=== PATIENT | male | born 2000 | race Caucasian/White ===

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

== ENCOUNTER 2022-04-30 02:43 | Emergency (ER) | payer SELFPAY ==
[2022-04-30 02:44] VITALS: BP 172/98; PULSE 112; RESP 18; TEMP 37.1; O2SAT 100; BMI 29.7
[2022-04-30 03:11] LABS: Adenovirus F 40/41, stool Not Detected (NotDetected); Astrovirus Not Detected (NotDetected); Campylobacter Not Detected (NotDetected); Cryptosporidium Not Detected (NotDetected); Cyclospora Cayetanesis Not Detected (NotDetected); Entamoeba histolytica Not Detected (NotDetected); Enteroaggregative E coli Not Detected (NotDetected); Enteropathogenic E coli Not Detected (NotDetected); Enterotoxigenic E coli Not Detected (NotDetected); Giardia lamblia Not Detected (NotDetected); Plesimonas Shigalloides, PCR Not Detected (NotDetected); Rotavirus A Not Detected (NotDetected); Salmonella, PCR Not Detected (NotDetected); Sapovirus Not Detected (NotDetected); Shiga-like toxin E coli Not Detected (NotDetected); Shigella Enterovasive E coli Not Detected (NotDetected); Vibrio Cholerae Not Detected (NotDetected); Vibrio, PCR Not Detected (NotDetected); Yersinia Entercolitica, PCR Not Detected (NotDetected)
[2022-04-30 03:30] LABS: Basophils # 0.1 K/mm3 (0-0.2); Basophils % 0.6 % (0.1-2.0); Eosinophils # 0.2 K/mm3 (0.0-0.4); Hematocrit 49.5 % (42.0-52.0); Hemoglobin 17.1 g/dL (14.1-18.0); Lymphocytes % 5.7 % (10-50); Mean Corpuscular HGB Conc 34.6 g/dL (31.8-35.4); Mean Corpuscular Hemoglobin 28.5 pg (27.0-31.2); Mean Corpuscular Volume 82.6 fl (80-94); Mean Platelet Volume 8.1 fl (7.4-10.4); Monocytes # 1.3 K/mm3 (0.1-1.0); Monocytes % 7.9 % (1.7-9.3); Neutrophils # 14.4 K/mm3 (1.8-7.8); Neutrophils % 84.9 % (37.0-80.0); Platelet Count 333 K/mm3 (142-424); Red Blood Count 5.99 M/mm3 (4.60-6.20); Red Cell Distribution Width 13.1 % (11.5-17.5)
[2022-04-30 03:31] LABS: MANUAL DIFFERENTIAL MANUAL DIFFERENTIAL (MANUAL DIFF)
[2022-04-30 03:33] LABS: Alanine Aminotransferase 31 U/L (12-78); Albumin Level 5.6 g/dl (3.5-5.0); Albumin/Globulin Ratio 1.4 (1.1-1.8); Alkaline Phosphatase 155 U/L (38-126); Anion Gap 19.7 mEq/L (5-15); Aspartate Amino Transferase 36 U/L (17-59); Blood Urea Nitrogen 16 mg/dl (9-20); Calcium 10.8 mg/dl (8.4-10.2); Carbon Dioxide 24 mmol/L (22.0-30.0); Chloride 103 mmol/L (98-107); Creatinine Clearance Estimated 172 mL/min (50-200); Estimated Glomerular Filt Rate 96 ml/min (>60); GFR (African American) 116 ML/MIN (>60); Glucose 150 mg/dl (74-100); Potassium 3.7 mmoL/L (3.5-5.1); Sodium 143 mmol/L (136-145); Total Protein,Serum 9.6 g/dl (6.3-8.2)
[2022-04-30 03:59] LABS: Lymphocytes % 11 % (10-50); Monocytes % 2 % (2-9); Neutrophils % 79 % (42-76); Platelet Estimate Normal; RBC Morphology Normal; Total Cells Counted 100
--- NOTE | 2022-04-30 04:48 | HMH.EDNVD ---
Discharge Plan Disposition Patient Disposition: Home, Self-Care Prescriptions Prescriptions: New ondansetron HCl 4 mg Tablet 4 mg PO Q8H PRN (Reason: Nausea) Qty: 20 0RF metronidazole 500 mg Tablet 500 mg PO TID Qty: 30 0RF No Action ondansetron 4 MG tablet,disintegrating 4 mg PO TIDP PRN (Reason: Nausea And Vomiting) Qty: 10 0RF amoxicillin 500 MG capsule 500 mg PO BID 10 Days Qty: 20 0RF ondansetron 4 MG tablet,disintegrating 4 mg PO TIDP PRN (Reason: Nausea) Qty: 9 0RF cefdinir 300 MG capsule 300 mg PO BID 10 Days Qty: 20 0RF ondansetron 4 MG tablet,disintegrating 4 mg PO TIDP PRN (Reason: Nausea) Qty: 15 0RF Referrals Follow up/Referrals: Provider,Referral, MD [Primary Care Provider] - See instructions Clinical Impressions Clinical Impression: Enteritis due to Norovirus, C. difficile enteritis Instructions Patient Instructions: DI for Diarrhea and Traveler's Diarrhea -- Adult, DI for Nausea -- Adult Discharge ED Provider: Isrrael De Paz Nausea/Vomiting/Diarrhea HPI General Chief complaint: Nausea/Vomiting/Diarrhea Stated complaint: vomiting, diarrhea Time Seen by Provider: 04/30/22 04:48 Mode of Arrival: Ambulatory Source of Information: Patient and Medical Record Limitations: No Limitations Description of Symptoms (Recalled from ER Triage Doc. by RN): pt c/o n/v/d that started yesterday. has been exposed to norovirus History of Present Illness HPI Narrative: pt with exposure to norovirus presents with vomiting and diarrhea - MD complaint: nausea, vomiting, diarrhea and abdominal pain Onset (ago): day(s) Associated Abdominal Pain: Yes Location of pain: diffuse Severity: moderate Quality: cramping Context: sick contacts Associated symptoms: denies other symptoms Related Data Previous Rx's Medication Instructions Recorded amoxicillin 500 mg capsule 500 mg PO BID 10 days #20 caps 09/22/20 ondansetron 4 mg disintegrating 4 mg PO TIDP PRN Nausea #9 tabs 09/22/20 tablet cefdinir 300 mg capsule 300 mg PO BID 10 days #20 caps 09/23/20 ondansetron 4 mg disintegrating 4 mg PO TIDP PRN Nausea #15 tabs 09/23/20 tablet ondansetron 4 mg disintegrating 4 mg PO TIDP PRN Nausea And 07/26/21 tablet Vomiting #10 tabs metronidazole 500 mg tablet 500 mg PO TID #30 tabs 04/30/22 ondansetron HCl 4 mg tablet 4 mg PO Q8H PRN Nausea #20 tabs 04/30/22 Allergies Allergy/AdvReac Type Severity Reaction Status Date / Time No Known Drug Allergies Allergy Unknown Verified 09/23/20 14:00 [facility] Disclaimer: The information contained in this section may have been updated after the patient was seen, as this information can be updated by other users. Social History Smoking Status: Former smoker alcohol intake: never current occupational status: employed Travel in the last 8 weeks: None ROS Obtained: Yes All systems reviewed & no additional complaints except as documented Physical Exam General General appearance: alert Head Head exam: normocephalic Eye Eye exam: Present PERRL and EOMI ENT ENT exam: Present mucous membranes moist Neck Neck exam: Present trachea midline Respiratory Respiratory exam: Absent respiratory distress Cardiovascular Cardiovascular exam: Present regular rate Abdominal Exam Abdominal exam: Present soft and tenderness; Absent guarding or rebound Extremities Exam Extremities exam: Present full ROM Neurological Exam Neurological exam: Present alert, oriented X3 and CN II-XII intact Psychiatric Psychiatric exam: Present normal affect Skin Skin exam: Absent rash Medical Decision Making Medical Records Medical records reviewed: Yes I reviewed the patient's medical records. Adams Inquiry Pt receiving controlled substance: No Vital Signs: 04/30/22 02:44 04/30/22 05:48 Temperature 98.7 F 98.7 F Temperature Source Oral Oral Pulse Rate 90 Pulse Rate [Right] 112 H Respiratory Rate 18 16 Blood Pressure 135/74 Blood
[2022-04-30 05:24] LABS: Clostridium Difficile A/B, PCR Detected (NotDetected); Norovirus Detected (NotDetected)
[2022-04-30 05:48] VITALS: BP 135/74; PULSE 90; RESP 16; TEMP 37.1; O2SAT 100
== END 2022-04-30 06:11 | disposition home or self-care (01) ==
PROVIDERS: Emergency Provider Emergency Medicine
DX: A08.11 Acute gastroenteropathy due to Norwalk agent; Z79.899 Other long term (current) drug therapy; Z87.891 Personal history of nicotine dependence
CPT/HCPCS: 80053; 85007; 85025; 87507; 96361; 96374; 96375; 99284; J2405

== ENCOUNTER → 2023-03-20 06:34 | Outpatient (CLI) | payer BC, SELFPAY ==
[2023-03-20 20:04] LABS: MANUAL DIFFERENTIAL MANUAL DIFFERENTIAL (MANUAL DIFF)
[2023-03-20 20:10] LABS: Basophils % 0.3 % (0.1-2.0); Eosinophils # 0.1 K/mm3 (0.0-0.4); Eosinophils % 1.5 % (0.1-12.0); Hematocrit 46.3 % (42.0-52.0); Hemoglobin 16.4 g/dL (14.1-18.0); Lymphocytes # 2.5 K/mm3 (0.7-4.5); Lymphocytes % 36.1 % (10-50); Mean Corpuscular HGB Conc 35.3 g/dL (31.8-35.4); Mean Corpuscular Hemoglobin 29.8 pg (27.0-31.2); Mean Corpuscular Volume 84.4 fl (80-94); Monocytes # 0.5 K/mm3 (0.1-1.0); Monocytes % 6.6 % (1.7-9.3); Neutrophils # 3.9 K/mm3 (1.8-7.8); Neutrophils % 55.5 % (37.0-80.0); Platelet Count 250 K/mm3 (142-424); Red Blood Count 5.49 M/mm3 (4.60-6.20); Red Cell Distribution Width 13.2 % (11.5-17.5)
[2023-03-20 20:37] LABS: Erythrocyte Sedimentation Rate 5 mm/hr (0-15)
[2023-03-20 20:42] LABS: Chloride 101 mmol/L (98-107); Potassium 3.9 mmoL/L (3.5-5.1); Sodium 141 mmol/L (136-145)
[2023-03-20 20:45] LABS: Alanine Aminotransferase 22 U/L (12-78); Albumin Level 5.4 g/dl (3.5-5.0); Albumin/Globulin Ratio 1.7 (1.1-1.8); Alkaline Phosphatase 114 U/L (38-126); Anion Gap 13.9 mEq/L (5-15); Aspartate Amino Transferase 29 U/L (17-59); Bilirubin,Total 0.5 mg/dl (0.2-1.3); Blood Urea Nitrogen 17 mg/dl (9-20); Calcium 9.7 mg/dl (8.4-10.2); Carbon Dioxide 30 mmol/L (22.0-30.0); Estimated Glomerular Filt Rate 95 ml/min (>60); GFR (African American) 115 ML/MIN (>60); Globulin 3.2 g/dL (1.3-3.2); Glucose 74 mg/dl (74-100); Iron 88 ug/dL (49-181); Total Protein,Serum 8.6 g/dl (6.3-8.2)
[2023-03-20 21:08] LABS: 25-OH Vitamin D, Total 22.1 ng/mL (30-100)
[2023-03-20 21:09] LABS: T4 (Thyroxine) 8.6 ug/dl (5.53-11.0); Triiodothryronine (T3) Uptake 35 % (23.5-40.5)
[2023-03-20 21:22] LABS: Thyroid Stimulating Hormone 1.64 uIU/mL (0.465-4.68)
[2023-03-20 21:34] LABS: Prostate Specific Ag Screen 0.5 ng/ml (0.0-4.0)
[2023-03-20 21:35] LABS: C-Reactive Protein < 0.3 mg/L (0-4); Total Iron Binding Capacity 438 ug/dL (261-462)
[2023-03-20 21:42] LABS: Vitamin B12 352 pg/mL (239-931)
[2023-03-20 23:46] LABS: Eosinophils % 2 % (0-3); Lymphocytes % 27 % (10-50); Monocytes % 4 % (2-9); Neutrophils % 67 % (42-76); Platelet Estimate Normal; RBC Morphology Normal; Total Cells Counted 100
[2023-03-22 08:28] LABS: Testosterone,Total 210 ng/dL (264-916)
[2023-03-22 13:29] LABS: Anti-Centromere B Antibodies <0.2 AI (0.0-0.9); Anti-DNA (DS) Ab Qn 1 IU/mL (0-9); Anti-Jo-1 <0.2 AI (0.0-0.9); Anti-Smith Antibody <0.2 AI (0.0-0.9); Antichromatin Antibodies <0.2 AI (0.0-0.9); Antiscleroderma-70 Antibodies <0.2 AI (0.0-0.9); RNP Antibodies 0.2 AI (0.0-0.9); Sjogren's Anti-SS-A <0.2 AI (0.0-0.9); Sjogren's Anti-SS-B <0.2 AI (0.0-0.9)
[2023-03-25 06:06] LABS: Testosterone,Free 6.8 pg/mL (9.3-26.5)
[2023-03-27 08:18] LABS: Thyroid Peroxidase Antibodies 13 IU/mL (0-34)
[2023-03-28 06:14] LABS: Thyroid Stimulating Immunoglob 0.26 IU/L (0.00-0.55)
== END ==
LOC: LAB.DROPOF 03-21 06:35
PROVIDERS: PCP Physician Assistant; Visit Provider Physician Assistant
DX: R53.83 Other fatigue (principal); R79.89 Other specified abnormal findings of blood chemistry; E55.9 Vitamin D deficiency, unspecified; E29.1 Testicular hypofunction; Z12.5 Encounter for screening for malignant neoplasm of prostate
CPT/HCPCS: 80053; 82306; 82607; 83540; 83550; 84402; 84403; 84436; 84443; 84445; 84479; 85007; 85014; 85018; 85048; 85049; 85651; 86140; 86225; 86235; 86376; G0103

== ENCOUNTER → 2023-04-02 15:04 | Outpatient (CLI) | payer BC, SELFPAY ==
--- NOTE | 2023-04-02 | US_ITS ---
FINAL REPORT CLINICAL HISTORY: BLE numbness, ED FINDINGS: LOWER EXTREMITY SEGMENTAL PRESSURE MEASUREMENTS FINDINGS: Pressure indices are as follows: RIGHT LOWER EXTREMITY: Upper thigh: 0.92 Calf: 0.97 Ankle, posterior tibial artery: 1.02 Ankle, dorsalis pedis: 0.94 Toe: 0.86 Comments: No evidence of significant obstructive peripheral vascular disease LEFT LOWER EXTREMITY: Upper thigh: 0.95 Calf: 1.07 Ankle, posterior tibial artery: 1.07 Ankle, dorsalis pedis: Toe: 0.82 Comments: Normal values IMPRESSION: No evidence of significant obstructive peripheral vascular disease Authenticated and ERN
== END ==
LOC: RT 15:05
PROVIDERS: PCP Physician Assistant; Visit Provider Physician Assistant
DX: R20.0 Anesthesia of skin (principal)
CPT/HCPCS: 93923

== ENCOUNTER → 2023-04-05 15:41 | Outpatient (CLI) | payer BC, SELFPAY ==
--- NOTE | 2023-04-05 15:42 | US_ITS ---
FINAL REPORT CLINICAL HISTORY: adnormal thyroid panel COMPARISON: None FINDINGS: THYROID ULTRASOUND: The right lobe of the thyroid measures 5.7 x 1.7 x 1.9 cm in size. There is a small nodule in the right side of the isthmus of the thyroid gland, which measures 4 x 3 x 2 mm in size, hypoechoic, solid. No other nodules are noted in the right lobe. The left lobe of the thyroid gland measures 5 x 1.2 x 1.8 cm in size, with a small nodule in the left lobe of the thyroid gland, which measures 5 x 4 x 2 mm in size. This nodule is solid, hypoechoic, a TI-RADS 4 category nodule. No other nodules are noted in the left lobe. The isthmus of the thyroid gland measures 3 mm in thickness. IMPRESSION: Nodule in the right side of the isthmus of the thyroid, as described. According to TI-RADS criteria, this nodule does not require follow-up. Nodule in the left lobe of the thyroid gland, 5 x 4 x 2 mm in size, a TI-RADS category 4 nodule. This nodule does not require follow-up at this time according to TI-RADS criteria. Reviewed, Interpreted and Dictated by John Simmons III, MD Transcribed by Stephanie Vega Authenticated and [facility]
== END ==
PROVIDERS: PCP Physician Assistant; Visit Provider Physician Assistant
DX: R89.9 Unspecified abnormal finding in specimens from other organs, systems and tissues (principal)
CPT/HCPCS: 76536

== ENCOUNTER → 2023-04-06 07:48 | Outpatient (CLI) | payer BC, SELFPAY ==
--- NOTE | 2023-04-06 07:48 | MR_ITS ---
PROCEDURE INFORMATION: Exam: MR Lumbar Spine Without Contrast Exam date and time: 04/06/2023 9:39 AM Age: 22 years old Clinical indication: Patient HX: Low back pain, bilateral leg numbness; Additional info: ED, numbness ble TECHNIQUE: Imaging protocol: Magnetic resonance imaging of the lumbar spine without contrast. COMPARISON: CT ABDOMEN PELVIS W CON 09/23/2020 2:52 PM FINDINGS: Limitations: The axial imaging is degraded by motion. Bones/joints: The alignment is anatomic. The vertebral body heights are maintained. The marrow signal is normal. No fracture. Spinal cord: Visualized cord, conus medullaris and cauda equina are unremarkable without compression. L1-L2: No significant disc bulge or herniation. No severe spinal canal stenosis. No significant neural foraminal narrowing. L2-L3: No significant disc bulge or herniation. No severe spinal canal stenosis. No significant neural foraminal narrowing. L3-L4: No significant disc bulge or herniation. No severe spinal canal stenosis. No significant neural foraminal narrowing. L4-L5: L4-L5 subtle saddle shaped disc bulging is seen without stenosis. There is minimal facet arthrosis with left-sided posteriorly projecting 5 mm synovial cyst. L5-S1: L5-S1 there is minimal diffuse disc bulging present without stenosis of the spinal canal. The left neural foramina is mildly narrowed. Soft tissues: Unremarkable. IMPRESSION: Minimal degenerative disc disease L4-S1 without spinal canal stenosis, as described.
--- NOTE | 2023-04-06 08:02 | XR_ITS ---
PROCEDURE INFORMATION: Exam: XR Orbits Exam date and time: 04/06/2023 8:04 AM Age: 22 years old Clinical indication: Screening exam; Mri clearance, HX welding; Additional info: Mri clearance, HX of welding TECHNIQUE: Imaging protocol: XR of the orbits. Views: Minimum of 4 views COMPARISON: No relevant prior studies available. FINDINGS: Sinuses: Well aerated. No opacification. Bones/joints: No fracture. Soft tissues: Unremarkable. IMPRESSION: Unremarkable.
== END ==
PROVIDERS: PCP Physician Assistant; Visit Provider Physician Assistant
DX: R20.0 Anesthesia of skin (principal); H05.53 Retained (old) foreign body following penetrating wound of bilateral orbits
CPT/HCPCS: 70200; 72148; 76376

== ENCOUNTER 2023-05-22 18:15 | Emergency (ER) | payer BC, SELFPAY ==
[2023-05-22 18:55] VITALS: BP 138/88; PULSE 120; RESP 18; TEMP 37.4; O2SAT 98; BMI 32.3
--- NOTE | 2023-05-22 19:09 | ED_ITS ---
Discharge Plan Disposition Patient Disposition: Home, Self-Care Condition: Good Prescriptions Prescriptions: New oseltamivir [Tamiflu] 75 mg capsule 75 mg PO BID Qty: 10 0RF [id number]-bzywededs-ZP [Bromfed DM] 2-30-10 mg/5 mL Syrup 5 ml PO Q6H PRN (Reason: Cough) Qty: 240 0RF ondansetron 4 mg Tablet,Disintegrating 4 mg PO Q8H PRN (Reason: Nausea) Qty: 12 0RF No Action ergocalciferol (vitamin D2) 1,250 mcg (50,000 unit) capsule 1,250 mcg PO WEEKLY Qty: 14 3RF Referrals Follow up/Referrals: Alejandra Alfaro PA [Primary Care Provider] - See instructions Activity Restrictions/Add. Instructions Additional Instructions/Restrictions: Drink plenty of fluids. Take tylenol or ibuprofen for pain or fever. Take one of these regularly for the next few days. Take the medications as directed. Follow up with your regular doctor. GO TO THE ER FOR ANY WORSENING SYMPTOMS Clinical Impressions Clinical Impression: Influenza A Stand Alone Forms Stand Alone Forms: Work/School Release Instructions Patient Instructions: Influenza, DI for Influenza -- Adult, Ondansetron, Oseltamivir Discharge ED Provider: Jose Maria Robbins [facility] General Stated complaint: Congestion,fever,body aches Time Seen by Provider: 05/22/23 19:09 History of Present Illness Provider Complaint: He states that since this morning he has had fever, chills, chest tightness, body aches, scratchy throat, and malaise. He has also had nausea. He denies any shortness of breath. Related Data Previous Rx's Medication Instructions Recorded ergocalciferol (vitamin D2) 1,250 1,250 mcg PO WEEKLY #14 caps 03/26/23 mcg (50,000 unit) capsule bgkxzbcmlznbjgt-acpljxmcpgggrrx-FD 5 ml PO Q6H PRN Cough #240 mL 05/22/23 2 mg-30 mg-10 mg/5 mL oral syrup (Bromfed DM) ondansetron 4 mg disintegrating 4 mg PO Q8H PRN Nausea #12 tabs 05/22/23 tablet oseltamivir 75 mg capsule (Tamiflu) 75 mg PO BID #10 caps 05/22/23 Allergies Allergy/AdvReac Type Severity Reaction Status Date / Time No Known Drug Allergies Allergy Unknown Verified 05/22/23 19:18 [facility] Disclaimer: The information contained in this section may have been updated after the patient was seen, as this information can be updated by other users. Medical History (Updated 05/22/23 @ 19:25 by Jose Maria Robbins APRN) Erectile dysfunction Fatigue Hypertension Infection of ear Surgical History H/O tympanostomy Social History Smoking Status: Former smoker alcohol intake: never current occupational status: employed Travel in the last 8 weeks: None ROS Obtained: Yes All systems reviewed & no additional complaints except as documented Constitutional Constitutional: Reports chills and Reports fever(s) Eyes Eyes: Denies eye discharge ENT Ears, Nose, Mouth, and Throat: Reports as per HPI Cardiovascular Cardiovascular: Denies chest pain Respiratory Respiratory: Denies chest congestion and Reports cough Gastrointestinal Gastrointestingal: Reports nausea; Denies abdominal pain, constipation, cramping, diarrhea or vomiting Musculoskeletal Musculoskeletal: Denies arthralgias Integumentary/Breasts Skin/Breast: Denies rash Neurologic Neurologic: Denies paresthesias Physical Exam General General appearance: alert and in no apparent distress Head Head exam: atraumatic, normocephalic and normal inspection Eye Eye exam: Present normal appearance, PERRL and EOMI ENT ENT exam: Present normal exam, normal oropharynx, mucous membranes moist, TM's normal bilaterally and normal external ear exam Neck Neck exam: Present normal inspection, full ROM and trachea midline; Absent meningismus or lymphadenopathy Chest Chest inspection: Present normal inspection and symmetric chest wall rise; Absent tenderness Respiratory Respiratory exam: Present normal lung sounds bilaterally; Absent respiratory distress Cardiovascular Cardiovascular exam: Present regular rate and normal rhythm; Absent JVD Abdominal Exam Abdominal exam: Present soft and normal bowel sounds; Absent distention, tenderness or guarding Extremities Exam Extremities exam: Present normal inspection, full ROM and normal capillary refill; Absent calf tenderness Back Exam Back exam: Present normal inspection; Absent tenderness Neurological Exam Neurological exam: Present alert and oriented X3 Psychiatric Psychiatric exam: Present normal affect and normal mood Skin Skin exam: Present warm, dry, intact and normal color Lymphatic Lymphatic Findings: no adenopathy Medical Decision Making Medical Records Medical records reviewed: No I reviewed the patient's medical records. [place] Inquiry Pt receiving controlled substance: No Lab Data Lab results reviewed: Yes I reviewed the patient's lab results.
[2023-05-22 19:27] LABS: UTC Influenza A Antigen Positive (Negative); UTC Influenza B Antigen Negative (Negative)
[2023-05-22 19:31] VITALS: BP 138/88; PULSE 120; RESP 21; TEMP 37.4; O2SAT 98
== END 2023-05-22 19:31 | disposition home or self-care (01) ==
PROVIDERS: Emergency Provider Nurse Practitioner Family; PCP Physician Assistant
DX: J10.1 Influenza due to other identified influenza virus with other respiratory manifestations (principal); R50.9 Fever, unspecified; R05.9 Cough, unspecified; R07.0 Pain in throat; R11.0 Nausea; R53.81 Other malaise; M79.18 Myalgia, other site
CPT/HCPCS: 87804; 99212; 99214; G0463

== ENCOUNTER 2023-12-02 08:43 | Outpatient (CLI) | payer BC, SELFPAY ==
--- NOTE | 2023-12-02 | MR_ITS ---
FINAL REPORT TECHNIQUE: Multiplanar multisequence MRI imaging was performed through the brain with additional small soovz-lh-flyv thin section imaging through the CP angle and IAC's without and with contrast. CLINICAL HISTORY: VERTIGO possible cyst, left internal ear COMPARISON: None FINDINGS: There is no mass-effect or midline shift. There is no hydrocephalus. Signal intensity is normal. The brainstem and cerebellum are without acute abnormality. On diffusion weighted images there is no restricted diffusion. No acute soft tissue abnormality is identified. On small ilaqj-yc-qkag thin section imaging through the CP angle and internal auditory canal, there is no CP angle mass. There is abnormal T1 and T2 hyperintensity within the left mastoid air cells. This could represent cholesteatoma. The remaining soft tissues are without acute abnormality. Postcontrast images reveal no abnormal enhancement. IMPRESSION: No acute intracranial abnormality and no abnormal enhancement. Abnormal soft tissue in the region of the left mastoid air cells. Cholesteatoma not excluded. Consider temporal bone CT for further evaluation. Reviewed, Interpreted and Dictated by Anny Li MD Transcribed by Sona Granados Authenticated and [facility]
[2023-12-02] MEDS: SODIUM CHLORIDE 0.9% 10ML FLUSH SYRINGE 10 ML IV (10:39)
[2023-12-02] MEDS: GADOTERIDOL INJ 20ML SYRINGE 20 ML IV (10:39)
[2023-12-02] MEDS: GADOTERIDOL INJ 10ML SYRINGE IV (10:40)
== END 2023-12-02 23:59 | disposition home or self-care (01) ==
LOC: RAD 08:46
PROVIDERS: PCP Internal Medicine; Visit Provider Internal Medicine
DX: R42 Dizziness and giddiness (principal)
CPT/HCPCS: 70553; A9576